=== PATIENT | female | born 1985 | race Caucasian/White ===

== ENCOUNTER 2017-10-12 22:33 | Emergency (ER) | payer OTHER ==
[2017-10-12] MEDS ORDERED: Levalbuterol HFA INHALER* 1 PUFF MDI INH ONE (23:18)
[2017-10-12] MEDS ORDERED: Benzonatate CAP* 100 MG PO ONE (23:19)
[2017-10-12] MEDS ORDERED: Acetaminophen TAB* 325 MG PO ONE (23:19)
[2017-10-12] MEDS ORDERED: Ciprofloxacin TAB* 500 MG PO ONE (23:39)
--- NOTE | 2017-10-13 00:11 | ED ---
Throat Pain/Nasal Congestion - HPI Summary HPI Summary: Patient presents to the ED with CC of left ear drum perforation. She states the ear has been hurting for about 4 days (likely having an inner ear infection ) until this morning when she heart a "pop" and she felt as though her ear burst. She notes to bloody discharge from the ear. She was seen by a PCP at [facility] and dx with a perforated ear drum. Endorses decreased hearing. Pain is 8/10 and constant, but she declines pain management. She also has had a cold recently with cough with productive sputum. Denies [place], sinus pressure or chest pain. Endorses fevers, sweats. None currently. Denies chills. Denies recent abx use or PNA. Notes to some SOB which is worse with her cold symptoms and takes xopenex for relief. Denies taking any other medications. Endorses sick contacts. - History of Current Complaint Chief Complaint: EDEarPain Time Seen by Provider: 10/12/17 22:48 Hx Obtained From: Patient Onset/Duration: Sudden Onset Severity: Moderate - Epiglottits Risk Factors Epiglottis Risk Factors: Negative - Allergies/Home Medications Allergies/Adverse Reactions: Allergies Allergy/AdvReac Type Severity Reaction Status Date / Time Latex Allergy Mild Rash Verified 10/11/12 09:58 PMH/Surg Hx/FS Hx/Imm Hx Previously Healthy: Yes Respiratory History: Reports: Hx Asthma GI History: Reports: Hx Gastroesophageal Reflux Disease Psychiatric History: Reports: Hx Depression - Immunization History Hx Pertussis Vaccination: No Immunizations Up to Date: Yes Infectious Disease History: No Infectious Disease History: Denies: Traveled Outside the [place] in Last 30 Days - Family History Known Family History: Positive: Hypertension, Other - diverticulitis, crohns Negative: Cardiac Disease, Diabetes - Social History Occupation: Employed Full-time Lives: With Family Alcohol Use: None Hx Substance Use: No Substance Use Type: Reports: None Hx Tobacco Use: Yes Smoking Status (MU): Never Smoked Tobacco Review of Systems Positive: Fever, Chills, Fatigue Eyes: Negative Positive: Ear Ache. Negative: Epistaxis, Sore Throat, Nasal Discharge Negative: Palpitations, Chest Pain Positive: Shortness Of Breath, Cough Negative: Vomiting, Diarrhea Positive: no symptoms reported, see HPI. Negative: burning, dysuria Negative: Arthralgia, Myalgia Negative: Rash Negative: Headache All Other Systems Reviewed And Are Negative: Yes Physical Exam Triage Information Reviewed: Yes Vital Signs On Initial Exam: Initial Vitals Temp Pulse Resp BP Pulse Ox 98.4 F 107 16 134/111 98 10/12/17 22:36 10/12/17 22:36 10/12/17 22:36 10/12/17 22:36 10/12/17 22:36 Vital Signs Reviewed: Yes Appearance: Positive: Well-Appearing, Well-Nourished Skin: Positive: Warm, Skin Color Reflects Adequate Perfusion Head/Face: Positive: Normal Head/Face Inspection Eyes: Positive: EOMI, SONIA, Conjunctiva Clear ENT: Positive: Other - TM with small perforation - no evidence of other trauma. No bleeding or drainage in the ear canal. Neck: Positive: Supple, No Lymphadenopathy Respiratory/Lung Sounds: Positive: Clear to Auscultation, Breath Sounds Present Cardiovascular: Positive: RRR, Pulses are Symmetrical in both Upper and Lower Extremities Musculoskeletal: Positive: Strength/ROM Intact Neurological: Positive: Speech Normal Psychiatric: Positive: Normal - [place] Coma Scale Coma Scale Total: 15 Diagnostics - Vital Signs Vital Signs Temp Pulse Resp BP Pulse Ox 10/12/17 22:36 98.4 F 107 16 134/111 98 - Laboratory Lab Statement: Any lab studies that have been ordered have been reviewed, and results considered in the medical decision making process. EENT Course/Dx - Course Course Of Treatment: Patient is evaluated for ear perforation. No serous fluid or other drainage from the inner ear. No mastoid tenderness. She was dx with perf today by a PCP. She was unable to pick her medications up and now the pharmacy is closed. She endorses bloody discharge earlier today. Notes to a cough with some SOB. TM appears to have a small perforation with erythema in the canal without evidence of infection. D/t likely otitis media infection preceding the perf, she is given Cipro - patient is refusing amoxicillin d/t side effects. She is given follow up with Dr. Ruiz although I have stated these likely will improve without other treatments/surgeries or approaches, but she should still call tomorrow for appt. She agrees to this. Declines pain medication. She is given tessalon for cough and refill on her xopenex. She is encouraged to return if the ear pain worsens or her cough worsens despite the medication or she develops any fevers, sweats or chills. While her BP was elevated on arrival, she is rechecked prior to leaving and returned to WNL at 136/86. She is to follow up on this as well, but likely elevated d/t pain. - Differential Diagnoses Differential Diagnoses: Mastoiditis, Otitis Externa, Otitis Media - Diagnoses Provider Diagnoses: Perforated eardrum Discharge - Discharge Plan Condition: Stable Disposition: HOME Prescriptions: Benzonatate CAP* [Tessalon CAP*] 100 mg PO TID #21 cap Ciprofloxacin TAB* [Cipro 500 MG TAB*] 500 mg PO BID #15 tab Patient Education Materials: Otitis Media (ED) Referrals: Favio Ruiz MD [Medical Doctor] - Additional Instructions: Please follow up with Dr. Ruiz Cipro - take twice daily for 7 days- first dose is given in the ED Tessalon perles for cough - up to 3 times daily Xopenex inhaler given to you in the ED Humidifier in the home will help Tylenol for any pain If symptoms persist, I recommend follow up with Dr. Ruiz
[2017-10-13 01:14] VITALS: BP 107/73
== END 2017-10-12 23:58 | disposition home or self-care (01) ==
LOC: ED 22:33
DX: H72.90 Unspecified perforation of tympanic membrane, unspecified ear (principal); H92.09 Otalgia, unspecified ear
CPT/HCPCS: 99282; A9270-GY

== ENCOUNTER 2018-08-07 19:52 | Emergency (ER) | payer MEDICAID, OTHER ==
[2018-08-07] MEDS ORDERED: Amoxicillin/Clavulanate TAB* 875 MG PO ONE (20:08)
--- NOTE | 2018-08-07 20:13 | ED ---
Throat Pain/Nasal Congestion - HPI Summary HPI Summary: Patient with history of recurrent ear infections complains of right ear pain 4 days. Denies fever, cough, sore throat, some headache, neck pain, purulent drainage, CP, SOB, N/V/D, abdomen pain, change in urine, change in BM. - History of Current Complaint Chief Complaint: EDEarPain Time Seen by Provider: 08/07/18 19:59 Hx Obtained From: Patient Onset/Duration: Gradual Onset Severity: Severe Associated Signs And Symptoms: Positive: Negative Cough: None - Allergies/Home Medications Allergies/Adverse Reactions: Allergies Allergy/AdvReac Type Severity Reaction Status Date / Time latex AdvReac Mild Rash Verified 08/07/18 19:58 PMH/Surg Hx/FS Hx/Imm Hx Endocrine/Hematology History: Denies: Hx Anticoagulant Therapy Respiratory History: Reports: Hx Asthma GI History: Reports: Hx Gastroesophageal Reflux Disease Psychiatric History: Reports: Hx Depression Infectious Disease History: No Infectious Disease History: Denies: Traveled Outside the [place] in Last 30 Days - Family History Known Family History: Positive: Hypertension, Other - diverticulitis, crohns Negative: Cardiac Disease, Diabetes - Social History Alcohol Use: None Substance Use Type: Reports: None Hx Tobacco Use: Yes Smoking Status (MU): Never Smoked Tobacco Review of Systems Constitutional: Negative Eyes: Negative Positive: Ear Ache Cardiovascular: Negative Respiratory: Negative Gastrointestinal: Negative Genitourinary: Negative Musculoskeletal: Negative Skin: Negative Neurological: Negative Psychological: Normal All Other Systems Reviewed And Are Negative: Yes Physical Exam Triage Information Reviewed: Yes Vital Signs On Initial Exam: Initial Vitals Temp Pulse Resp BP Pulse Ox 98.2 F 88 16 124/85 100 08/07/18 19:55 08/07/18 19:55 08/07/18 19:55 08/07/18 19:55 08/07/18 19:55 Vital Signs Reviewed: Yes Appearance: Positive: Well-Appearing Skin: Positive: Warm Head/Face: Positive: Normal Head/Face Inspection Eyes: Positive: Normal ENT: Positive: TM red - rt. Negative: Tonsillar swelling, Tonsillar exudate, Trismus, Muffled voice, Hoarse voice Neck: Positive: Supple Respiratory/Lung Sounds: Positive: Clear to Auscultation Cardiovascular: Positive: Normal Abdomen Description: Positive: Nontender Musculoskeletal: Positive: Normal Neurological: Positive: Normal Psychiatric: Positive: Normal AVPU Assessment: Alert - [place] Coma Scale Best Eye Response: 4 - Spontaneous Best Motor Response: 6 - Obeys Commands Best Verbal Response: 5 - Oriented Coma Scale Total: 15 Diagnostics - Vital Signs Vital Signs Temp Pulse Resp BP Pulse Ox 08/07/18 19:55 98.2 F 88 16 124/85 100 - Laboratory Lab Statement: Any lab studies that have been ordered have been reviewed, and results considered in the medical decision making process. EENT Course/Dx - Course Course Of Treatment: Patient with history of recurrent ear infections complains of right ear pain 4 days. Denies fever, cough, sore throat, some headache, neck pain, purulent drainage, CP, SOB, N/V/D, abdomen pain, change in urine, change in BM. Vital signs within normal limits. Rx for Augmentin. Rx for Ciprodex if necessary. - Diagnoses Provider Diagnoses: Ear pain, right Discharge - Sign-Out/Discharge Documenting (check all that apply): Patient Departure - Discharge Plan Condition: Stable Disposition: HOME Prescriptions: Amoxicillin/Clavulanate TAB* [Augmentin TAB 875*] 875 mg PO BID #20 tab Ciproflox/Dexameth OTIC.SUSP* [Ciprodex OTIC.SUSP*] 4 drop .SEE ORDER BID 7 Days #1 btl Patient Education Materials: Earache (ED) Referrals: No Primary Care Phys,NOPCP [Primary Care Provider] - [facility] [Outside] Additional Instructions: Take antibiotics as directed. Follow-up with primary care. Return to ED for any new or worsening symptoms - Billing Disposition and Condition Condition: STABLE Disposition: Home
[2018-08-07 20:30] VITALS: BP 122/72
== END 2018-08-07 20:28 | disposition home or self-care (01) ==
LOC: ED 19:52
DX: H92.01 Otalgia, right ear (principal)
CPT/HCPCS: 99282; A9270-GY

== ENCOUNTER 2018-10-12 19:37 | Observation (INO) | payer SELFPAY ==
[2018-10-12] MEDS ORDERED: NS 0.9% 1000 ML* 1,000 ML IV ONE (19:59)
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
[2018-10-12 20:16] LABS: ABS Basophils 0.1 10^3/ul (0-0.2); ABS Eosinophils 0.8 10^3/ul (0-0.6); ABS Lymphocytes 2.5 10^3/ul (1.0-4.8); ABS Monocytes 0.5 10^3/ul (0-0.8); ABS Neutrophils 4.3 10^3/ul (1.5-7.7); ABS Nucleated RBC 0 10^3/ul; Eosinophil % 9.4 %; Hematocrit 43 % (35-47); Hemoglobin 14.9 g/dl (12.0-16.0); Lymphocyte % 30.7 %; Mean Corpuscular HGB Conc 35 g/dl (31-36); Mean Corpuscular Hemoglobin 30 pg (27-31); Mean Corpuscular Volume 86 fL (80-97); Mean Platelet Volume 7.8 fL (7.4-10.4); Nucleated Red Blood Cells % 0; Platelet Count 275 10^3/ul (150-450); Red Blood Count 4.97 10^6/ul (4.00-5.40); Red Cell Distribution Width 13 % (10.5-15); White Blood Count 8.1 10^3/ul (3.5-10.8)
[2018-10-12 20:24] LABS: Activated Partial Thrombo Time 32.3 seconds (26.0-36.3); INR 0.82 (0.77-1.02)
[2018-10-12 20:33] LABS: ALT 20 U/L (7-52); AST 14 U/L (13-39); Albumin 4.4 g/dL (3.2-5.2); Albumin/Globulin Ratio 1.6 (1-3); Alkaline Phosphatase 60 U/L (34-104); Anion Gap 8 mmol/L (2-11); BUN/Creatinine Ratio 12.3 (8-20); Blood Urea Nitrogen 10 mg/dL (6-24); CO2 Carbon Dioxide 30 mmol/L (22-32); Calcium 9.7 mg/dL (8.6-10.3); Chloride 102 mmol/L (101-111); EGFR Non-African American 82.5 (>60); Globulin 2.8 g/dL (2-4); Glucose 119 mg/dL (70-100); Potassium 3.5 mmol/L (3.5-5.0); Sodium 140 mmol/L (135-145); Total Protein 7.2 g/dL (6.4-8.9)
[2018-10-12] MEDS ORDERED: Aspirin EC TAB* 325 MG PO ONE (20:36)
[2018-10-12 20:39] LABS: HCG Pregnancy < 0.60 mIU/mL
[2018-10-12] MEDS ORDERED: Iohexol 350* (CONTRAST) 500 ML MDV IV ONE (20:40)
[2018-10-12 22:26] LABS: Urine Appearance Clear; Urine Bacteria Absent (Absent); Urine Bilirubin Negative (Negative); Urine Blood 3+ (Negative); Urine Color Yellow; Urine Glucose Negative (Negative); Urine Ketones Negative (Negative); Urine Nitrite Negative (Negative); Urine Protein Negative (Negative); Urine Red Blood Cell 2+(6-10/hpf) (Absent); Urine Specific Gravity 1.053 (1.010-1.030); Urine Urobilinogen Negative (Negative); Urine White Blood Cell Trace(0-5/hpf) (Absent)
[2018-10-12 22:40] LABS: Barbiturates Urine Screen None Detected (None Detect); Benzodiazepine Urine Screen None Detected (None Detect); Urine Cannabinoids Screen None Detected (None Detect)
[2018-10-12] MEDS: Potassium Chloride LIQUID* 20 MEQ PACKET PO SCH (22:42)
[2018-10-12] MEDS ORDERED: Acetaminophen TAB* 325 MG PO PRN (22:51)
[2018-10-12] MEDS ORDERED: NS 0.9% 1000 ML* 1,000 ML IV SCH (23:00)
--- NOTE | 2018-10-13 00:37 | HP ---
HISTORY AND PHYSICAL: DATE OF ADMISSION: 10/12/18 ADMITTING PROVIDER: Sukhjinder Albert MD OUTPATIENT BENEFIT DIRECTOR: Tamika Valderrama CNM. CHIEF COMPLAINT: Transient aphasia. HISTORY OF PRESENT ILLNESS: Dee Jade is a 33-year-old female with past medical history of intermittent tachyarrhythmia for which she was last worked up with Holter monitor x1 month at age 17, 18 and 3 months, and during college, but unable to state a formal diagnosis, otherwise on no medications, but intermittent migraine headaches. She was eating dinner with her family on the day of admission when her daughter was acting out. She attempted to chastise the daughter and correct her behavior and knew what she wanted to say, but could not say it. She thinks she was able to say the word "ask," but she cannot relate exactly what else she said. She may have pointed to her older daughter, (aged 11, Porsha), who then was able to infer the meaning and tell the younger daughter to be more polite. This intermittent aphasia continued and the patient was brought to the [facility] emergency room and a faby march was called. She has had a CT head noncontrast, which showed no acute findings and a CTA which also showed no significant stenosis or occlusion of the extracranial internal carotid arteries bilaterally and a dominant left vertebral artery was visualized. By the time she had returned from the CT of the head around 7:45 p.m., the intermittent aphasia seems to have resolved. She also complained of a sensation of a salty taste in her mouth. During this episode, she is unable to say whether or note she was currently eating at that time (bread/egg for dinner), that has resolved. She has initially had a pressure headache in the top part of her head in the emergency room, now progressed to mild migraine headache. She does not take any medications for that. She also states for about 3 weeks, she has had a spot in her right posterior thigh which has been warm and itchy and occasionally painful, and she has been using a heat patch for that. Also today, her right anterior knee was hurting her. She has had diarrhea since Tuesday that resolved by this a.m., and now, other members of the household including and mother have developed diarrhea today. As far as her tachyarrhythmia history, she states that she gets heart rates up to the 270s back when she was playing soccer in college and also if she does any interval type training with heart exertion. Even recently, she had sensations of palpitations approximately twice a month and states if she has them during a day, it would usually last all that day. She had a brief sensation here in the emergency room. Her last echocardiogram was more than 10 years ago in [facility] back in her college days, she was recommended to follow up with another echocardiogram in 6 months, but got and never did so. She thinks she may have had a murmur at one point since . PAST MEDICAL HISTORY: Tachyarrhythmia (unclear diagnosis) and occasional migraine headaches. PAST SURGICAL HISTORY: None. MEDICATIONS: None. ALLERGIES: She has adverse reactions to ALEVE (rectal bleeding) and MOTRIN ( stomach pain). She has LATEX allergy (rash). FAMILY HISTORY: Her mother has hypertension and hypothyroidism, alive, age 59. Father is healthy, age 60. Two sisters, ages 34 and 37, are healthy. Paternal grandmother and maternal grandmother both had CVAs. 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 She is a former smoker between ages 17 and 33, varying between 2 cigarettes , and by the time she quit in June, it was max 1-1/2 packs per day. She currently vapes. She does not drink alcohol or do other drugs. REVIEW OF SYSTEMS: A complete 14-point review of systems is negative except as per HPI. Denies any slurred speech, rashes, travel, long car rides, plane rides , leg cramps other than as per HPI. PHYSICAL EXAMINATION GENERAL APPEARANCE: No acute distress, though preferring the lights off. VITAL SIGNS: Temperature 99.0, heart rate 88, respiratory rate 16, oxygen sat 99 % on room air, blood pressure 147/97. HEENT: Normocephalic, atraumatic. Pupils equally round and reactive to light. Extraocular motions intact. NECK: Supple. No cervical lymphadenopathy. LUNGS: Clear to auscultation bilaterally with no wheezing, rales, or rhonchi. CARDIOVASCULAR: Regular rate and rhythm. No murmurs, rubs, or gallops appreciated. ABDOMEN: Soft, nontender, nondistended. EXTREMITIES: Warm and well perfused. No peripheral edema. No joint effusions in bilateral knees. NEUROLOGIC: Cranial nerves II through XII intact. Hand Zipper Trimmer strength, biceps, triceps, deltoid 5/5. Hip flexion, plantar flexion 5/5 on the left, hip flexion 5/5 on the right, but plantar and dorsiflexion pain limiting to at least 4+/5 on the right. DIAGNOSTIC STUDIES/LAB DATA: White count 8.1, hemoglobin 14.9, hematocrit 43, platelets 274. INR 0.82. Sodium 140, potassium 3.5, chloride 102, BUN 10, creatinine 0.81, glucose 119, calcium 9.7, magnesium pending. Total bili is 0.3 , AST 14, ALT 20, alk phos 60. Troponin 0.00. Albumin 4.4. Beta HCG less than 0.60. Imaging: CT of the brain demonstrates no acute intracranial abnormality CT angiogram of the head demonstrates: 1. No significant stenosis or occlusion of the extracranial internal carotid arteries bilaterally. 2. A dominant left vertebral artery is visualized. 3. Mildly enlarged level 1 to level 3 cervical lymph nodes are identified bilaterally, nonspecific as to etiology. 4. Subcentimeter intraparotid lymph nodes or nodules are visualized bilaterally. EKG demonstrated normal sinus rhythm, normal axis, heart rate 76, no ST elevations or depressions, a flat T-wave in V1, QTC 431, normal intervals, some poor R-wave progression. ASSESSMENT AND PLAN: Dee Jade is a 33-year-old female with history of unclear tachyarrhythmia with rates, she states, up in the 270s and never followed up with recommendation to repeat an echocardiogram that had an abnormality back in her college days, presenting with intermittent aphasia that has resolved. CT head and CT head angiogram, no acute intracranial processes. She has been admitted for transient ischemic attack workup and will get an echocardiogram with bubble study and rule out thrombus. Keep her on telemetry, replete her electrolytes, magnesium above 2 (pending) and potassium above 4, currently 3.5. We will order an MRI noncontrast of the brain to further rule out a small cerebrovascular accident. She is without neurological deficits currently. She can eat a heart-healthy diet. I am starting aspirin 81 daily. She is being admitted to observation status. She is a full code. Her medical surrogate is her mother, Adrianne Loza. She should likely establish care with an outpatient pack out operator, but we will see what the echocardiogram and telemetry findings show. [id number]/[facility] #: [id number] MARIANA
[2018-10-13] MEDS ORDERED: Aspirin 81 mg CHEW TAB* 81 MG TAB.CHEW PO SCH (09:00)
[2018-10-13] MEDS: Potassium Chloride LIQUID* 20 MEQ PACKET PO SCH (09:14)
[2018-10-13] MEDS ORDERED: Gadoteridol* (CONTRAST) 279.3 MG/ML 10 ML IV ONE (11:47)
[2018-10-13 12:35] VITALS: BP 116/66
--- NOTE | 2018-10-13 13:30 | CONSULT ---
Consult Consult: Gustatory hallucination with intermittent word finding difficulty - suspect seizures. Given that this is the 2-3 episode without 3 months, and the abnormal EEG, we agreed to treat with levetiracetam. Please start 250 mg PO twice daily, and increase to 500 mg twice daily after 3 days. Follow-up with neurology in 3-4 weeks. We will arrange an appointment. MRI brain reviewed. No acute abnormalities or lesion ( mass, mesial temporal sclerosis, cortical dysplasia). She can be discharged from the neurology standpoint. Complete consult note was dictated.
--- NOTE | 2018-10-13 14:37 | ECHO ---
Patient: RAKEL RAYA [facility] Rec#: [id number] : 1985 Date: 10/13/2018 Age: 33y Height: 160 cm / 63.0 in Weight: 74.8 kg / 164.9 lbs Sex: F BSA: 1.78 Room#: 434 Admit Date#: 10/12/2018 Type: Inpatient Referring: Sukhjinder Albert Reading: Will Gonzalez DO Survey Engineer: [facility] Indication: TIA BP: 97/50 HR: 78 Rhythm: NSR Findings History: Former cigarette smoker, current vape smoker, intermittent tachyarrhythmia. Technical Comments: The study quality is good. Completed at 1420. Left Ventricle: The left ventricular chamber size is normal. There is no left ventricular hypertrophy. Global left ventricular wall motion and contractility are within normal limits. There is normal left ventricular systolic function. The estimated ejection fraction is 55-60%. Normal left ventricular diastolic filling is observed. Left Atrium: The left atrial chamber size is normal. Right Ventricle: The right ventricular chamber size and systolic function are within normal limits. Right Atrium: The right atrium is mildly dilated. Interatrial septum appears intact without evidence of shunting. The bubble study is negative. A patent foramen ovale is not demonstrated with color Doppler and agitated contrast. Aortic Valve: The aortic valve is trileaflet. There is no evidence of aortic valve thickening. There is no evidence of aortic regurgitation. There is no evidence of aortic stenosis. Mitral Valve: The mitral valve leaflets do not appear thickened. There is a trace of mitral regurgitation. There is no evidence of mitral stenosis. Tricuspid Valve: The tricuspid valve leaflets are normal. There is a physiologic tricuspid regurgitation. Unable to estimate the right ventricular systolic pressure. There is no tricuspid stenosis. Pulmonic Valve: The pulmonic valve appears normal. There is a trace pulmonic regurgitation. There is no pulmonic stenosis. Pericardium: There is no significant pericardial effusion. Aorta: There is no dilatation of the ascending aorta. There is no dilatation of the aortic arch. The aortic root is normal in size. Pulmonary Artery: The main pulmonary artery is not well visualized. Venous: The inferior vena cava appears normal in size. There is a greater than 50% respiratory change in the inferior vena cava dimension. Contrast: Intravenous agitated saline contrast was used to assess intracardiac shunting. Images 48 and 49. Conclusions The left ventricular chamber size is normal. There is no left ventricular hypertrophy. Global left ventricular wall motion and contractility are within normal limits. There is normal left ventricular systolic function. The estimated ejection fraction is 55-60%. The left atrial chamber size is normal. The right ventricular chamber size and systolic function are within normal limits. No significant valvular abnormalities noted The bubble study is negative. None prior for comparison at time of interpretation Measurements Name Value Normal Range RVIDd (AP) 2D 3.3 cm (0.9 - 2.6) RVDdMajor (2D) 4.3 cm (2.2 - 4.4) RAd ISD 4CH 5.1 cm (3.4 - 4.9) RA (A4C)W 4.7 cm (2.9 - 4.6) IVSd (2D) 0.6 cm (0.6 - 1) LVPWd (2D) 0.8 cm (0.6 - 1) LVIDd (2D) 5 cm (3.6 - 5.4) LVIDs (2D) 3.5 cm - LV FS (2D) 30 % (25 - 45) Aortic Annulus 2.1 cm (1.4 - 2.6) Ao root diameter (2D) 2.7 cm (2.1 - 3.5) Ascending Ao 2.7 cm (2.1 - 3.4) Aortic arch 2.1 cm (1.8 - 3.4) LA dimension (AP) 2D 3.9 cm (2.3 - 3.8) LAd ISD 4CH 4.6 cm (2.9 - 5.3) LA ISD 4CH W 4.1 cm (2.5 - 4.5) Name Value Normal Range LA ESV BP (A/L) index 27 ml/m2 - Name Value Normal Range MV E-wave Vmax 1.1 m/sec - MV deceleration time 106 msec - MV A-wave Vmax 0.5 m/sec - MV E:A ratio 2.1 ratio - LV septal e' Vmax 0.1 m/sec - LV lateral e' Vmax 0.14 m/sec - LV E:e' septal ratio 11 ratio - LV E:e' lateral ratio 7.9 ratio - Name Value Normal Range AV Vmax 1.4 m/sec - AV VTI 28 cm - AV peak gradient 8 mmHg - AV mean gradient 4 mmHg - LVOT Vmax 1.1 m/sec - LVOT VTI 22.7 cm - LVOT peak gradient 5 mmHg - LVOT mean gradient 2 mmHg - GEETHA Vmax 1.1 m/sec - Name Value Normal Range IVC diameter 2 cm - Name Value Normal Range PV Vmax 0.9 m/sec - PV peak gradient 3 mmHg -
--- NOTE | 2018-10-13 15:00 | CONS ---
NEUROLOGY CONSULTATION NOTE: DATE OF CONSULT: 10/13/18 CONSULTING PROVIDER: Dr. Dexter. REASON FOR CONSULT: Transient episode of word finding difficulty. CHIEF COMPLAINT: Word finding difficulty. 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 while having dinner of abnormal taste in her mouth as if she was tasting salt, then sudden onset of word finding difficulty. She was having trouble saying words to her children. Her children were looking at her and repeating her name and asking her if she was okay. She was awake, conscious, and can hear her children speaking to her. This lasted for approximately 15 to 20 minutes and then she required an extra 1 hour before she was able to verbalize without any complication. She never had any similar symptom before except for one episode in September where she was talking to her when suddenly she was not able to find the right words. That incident took only 2 minutes before she was back to her normal self. She did have a 6/10 pressure holocephalic headache that lasted approximately 4 hours. She does have history of occasional headaches approximately 1-3 times a month. The patient stated that she had an episode in August of 2018, where she was driving with her . She took the wrong turn and her was ensure why. She then got lost driving. After a few minutes, they had to turn around and take a different road, but she was not sure how she got to where she was initially when she usually typically takes the same road over and over again. The patient denied any history of epilepsy. She denied any family history of epilepsy. She has no history of head trauma, meningitis, encephalitis, brain or spinal cord surgeries. She has no history of febrile seizures. The patient was born full term, normal vaginal delivery without any complication. PAST MEDICAL HISTORY: Former tobacco user. She smoked for approximately 15 years. She averaged 1-1/2 packs a day. She quit in July 2018. HOME MEDICATIONS: None. ALLERGIES: LATEX, IBUPROFEN, and NAPROXEN. FAMILY HISTORY: Father is healthy. Mother has history of hypothyroidism and hypertension. SOCIAL HISTORY: The patient is . She has 4 children, 3 with her current and 1 with her former . She is going through some tough times at home and she has encountered sleep deprivation. She denies alcohol use. REVIEW OF SYSTEMS: A 14-point review of systems was obtained and otherwise negative. PHYSICAL EXAM: Vitals: Temperature of 97.4, heart rate of 72, respiratory rate of 16, oxygen saturation of 97%, blood pressure of 116/66. General: Well- nourished, well-developed female, in no acute distress, alert, cooperative. Head: Normocephalic without obvious abnormality. Eyes: Conjunctivae/corneas are clear. Neck is supple and symmetrical. No carotid bruit. Lungs are clear to auscultation bilaterally, nonlabored breathing. Cardiovascular: Regular rate and rhythm, normal S1, S2. Radial pulses are palpable. Extremities: Normal range of motion with no cyanosis. Skin: No skin lesions or lacerations. Psych: Affect is broad and normal mood, easy to establish rapport. Neurological Examination: Awake, alert, and oriented to person, place , time, and general circumstances. Her speech and language including time, expression, naming, repetition, and comprehension were assessed and found to be normal. Cranial Nerves: Normal confrontation testing. Pupils are mid range and reactive to light. Normal consensual response. Extraocular muscles are intact. No ptosis. No conjugate or asymmetric nystagmus. Sensation is intact on the forehead, cheeks, jaw region bilaterally. No facial droop. No facial asymmetry. She is able to hear throughout the history process. She has normal strength against shoulder resistance. Tongue is symmetrical and midline with no atrophy or fasciculation. Motor: No abnormal movements or pronator drift. Normal bulk and tone throughout. 5/5 strength throughout. Reflexes: Right/ left brachioradialis 2/1, biceps 2/1, triceps 2/2, patella 2/2, ankle 1/1. Plantarflexor/flexor, sensation is intact to light touch throughout. Vibration is 22 seconds on the right and 20 seconds on the left great toe. Coordination: Normal [id number] bilaterally. Gait and Station: Narrow based. Normal stance. No ataxia. DIAGNOSTIC STUDIES/LAB DATA: Labs, imaging, and other diagnostic testing. WBC of 8.1, hemoglobin 14.9, hematocrit of 43, platelet count of 275. INR is 0.82. Sodium of 140, potassium 3.5, chloride 102, creatinine of 0.81. Urinalysis, no pyuria. Drug screen is negative. Urine toxicology screen is negative. EEG was obtained, there was evidence of bisynchronous bitemporal discharges with intermittent diffuse areas of sharply contoured slowing. MRI brain with and without contrast, seizure protocol was obtained on 10/13/18. There was no definite epileptogenic focus. No acute intracranial abnormality. I personally reviewed the study. The mesial temporal lobes may be slightly asymmetric with slight atrophy in the right compared to the left. No enhancement was appreciated. CTA head and neck was obtained on 10/12/18 that showed no areas of large vessel occlusion. CT head without contrast completed on 10/12/18. I personally reviewed the study. There is no evidence of acute intracranial abnormality. ASSESSMENT AND RECOMMENDATION: Mrs. Dee Jade is a 33-year-old female who has a recent episode of word finding difficulty associated with abnormal taste/gustatory hallucinations. On neurological examination, the patient has no focal neurological deficit. She did have an abnormal EEG with no focal epileptic focus on MRI with and without contrast seizure protocol. Given that this is the third episode that she has had within a 3-month period, the patient most likely has diagnosis of seizures. The cause of the seizures are unclear. She has no risk factors for epilepsy. She has been complaining of increase in sleep deprivation and stress lately. Furthermore, the patient has been exposed to multiple antibiotic therapy over the last year for an infected tooth, which includes amoxicillin and doxycycline. We have agreed to start her on levetiracetam with a load of 500 mg p.o. x1 and continue 250 mg b.i.d. Please increase levetiracetam to 500 mg b.i.d. after 3 days. We will consider other treatment modalities such as Topamax or lamotrigine as an outpatient. She has no evidence of any headaches or nuchal rigidity or memory loss to suspect a paraneoplastic syndrome; however, if these symptoms develop, she may need a lumbar puncture as an outpatient. We discussed seizure precaution and good seizure hygiene. She did not have any loss of awareness or loss of consciousness during these episodes, hence driving restriction was not mandated. She has no stroke or no risk factors for transient ischemic attack and therefore, please discontinue aspirin and atorvastatin. Furthermore, her ABCD2 score is extremely low; thus, it's unlikely she is having re urrent TIA. The patient was instructed to come back to the emergency room if she develops any symptoms of seizures, focal neurological deficit, or increased headaches. She does not want any medications for her headache as these are mild and infrequent. The side effects of levetiracetam includes irritability and agitation, which she may experience and then she should contact our office immediately to be switched to a different antiseizure medication. TIME SPENT: I spent a total of 70 minutes of which greater than 50% was spent directly reviewing the medical chart, obtaining history, examining the patient, education and counseling regarding the new diagnosis, and discussing the treatment plan and prognosis. The patient can be discharged home from the Neurology standpoint today. [id number]/[facility] #: [id number]
[2018-10-13] MEDS ORDERED: levETIRAcetam TAB* 500 MG PO ONE (15:20)
--- NOTE | 2018-10-13 17:11 | EEG ---
ELECTROENCEPHALOGRAPHY: DATE OF STUDY: 10/13/18 DATE READ: 10/13/18 ORDERED BY: Dr. Sofia Dexter. MEDICATIONS: 1. Aspirin. 2. Klor-Con. 3. Acetaminophen. CLINICAL PROBLEM: Mrs. Jade is a 33-year-old female with history of intermittent episodes of word -finding difficulty. This EEG was ordered to evaluate for epileptiform abnormalities or electrograph ic seizures. CLINICAL STATE: Awake and drowsy. REPORT: The most prominent features of this recording were intermittent, paroxysms of diffuse polymo rphic sharply contoured delta and theta activity seen predominantly in the frontal region bilaterally . In addition also, there are occasional, intermittent, bitemporal, bisynchronous sharp with occasio nal medial amplitude spike and slow wave discharges maximal at A1, A2 with a spread to T4 and T3. Th e sharp waves were also occasionally seen in the left and right frontal regions at FP1, FP2, F3, F8. There were no electrographic seizures. Otherwise, the waking background showed appropriate organiza tion with clearly defined anterior- posterior voltage and frequency gradients. There was a well-defi katlyn posterior dominant rhythm of 9 Hz, which was symmetrical and showed normal reactivity. Anteriorly , there was an expected pattern of lower voltage, irregular, mixed faster frequencies. Hyperventilat ion and photic stimulation were not performed. Single electrode EKG showed a normal sinus rhythm wit h a rate of 60 beats per minute. Throughout the recording, there were no electrographic seizures. Th ere was attenuation of the posterior dominant rhythm during drowsiness. CLINICAL IMPRESSION: This is an abnormal waking and drowsy EEG due to the presence of diffuse polymo rphic sharply contoured slowing predominantly in the frontal region, bitemporal and bifrontal bisynch ronous sharp with occasional spike and slow wave discharges. These findings are suggestive of multifocal areas of epileptogenic potential predominantly emanating from the bitemporal regions. This heightens the risk for seizures and for developing epilepsy. Following the EEG results, we have decided to start the patient on antiseizure medications. The korin ent was started on levetiracetam 250 mg twice daily. [id number]/[facility] #: [id number]
[2018-10-13] MEDS ORDERED: levETIRAcetam TAB* 500 MG PO SCH ×2 (21:00)
--- NOTE | 2018-10-13 21:03 | DS ---
CC: Dr. Leonard; Dr. Albert and Dr. Quin Duran, [facility] * DISCHARGE SUMMARY: DATE OF ADMISSION: 10/12/18 DATE OF DISCHARGE: 10/13/18 PRIMARY CARE PROVIDER: The patient does not have a primary care provider. NEUROLOGY: Dr. Leonard. DISCHARGE DIAGNOSIS: Transient aphasia, likely due to seizure disorder. SECONDARY DIAGNOSIS: History of further undescribed tachyarrhythmia and migraine headaches. MEDICATIONS AT DISCHARGE: Include Keppra 250 mg b.i.d. for a total of 3 days and then increase to 500 mg b.i.d. FOLLOWUP APPOINTMENTS: The patient is referred to [facility], which will call the patient with a scheduled appointment. The patient is also asked to call Dr. Leonard's office to schedule an appointment in 3 to 4 weeks. LABORATORY DATA AND STUDIES PERFORMED DURING THE HOSPITAL STAY: Included: On 10/12/18, white blood cell count of 8.1, hemoglobin of 14.9, hematocrit of 43, and platelets of 275. Sodium is 140, potassium is 3.5, chloride 102, carbon dioxide 30, BUN 10, creatinine 0.81. Urine drug screen was unremarkable. Brain MRI obtained with contrast on 10/13/18, impression: "No definite epileptogenic focus. No acute intracranial abnormality." Venous Dopplers of the right leg show no DVT. X-ray of the right leg shows normal knee radiograph. Transthoracic echocardiogram obtained on 10/13/18 showed EF of 55% to 60% with bubble study negative and no significant valvular abnormalities. CT angiogram of the head and neck showed "no hemodynamically significant stenosis or occlusion of the CTA of the head. A dominant left vertebral artery is visualized. No significant stenosis or occlusion of the extracranial internal carotid arteries bilaterally. Mildly enlarged level I through level III cervical lymph nodes are identified bilaterally. No specific etiology. Subcentimeter intraparotid lymph nodes or nodules are visualized bilaterally." Portable chest x-ray was also unremarkable. The patient's EEG was pending at the time of dictation, but the preliminary report obtained from Dr. Leonard showed occasional epileptiform discharges noted temporally. Please refer to the formal read of the EEG for further details. CONSULTATIONS: Included Dr. Leonard from neurology. HOSPITALIZATION COURSE: Dee Jade is a 33-year-old female who presented to the hospital with an episode of problems with word finding. For further details of the patient's presentation, please see history and physical. So, the patient was admitted to the hospital and at that point, neurologically intact. She continues to be on telemetry monitoring floor with no evidence of arrhythmias. She had an EEG obtained, which showed abnormal discharges. Subsequently, she was seen by Dr. Leonard, neurology consultation, who recommended an MRI of the brain. That was obtained and, as above mentioned, was also unremarkable. The patient also underwent a CT angiogram of the head and neck with no evidence of abnormalities in the vasculature. Transthoracic echocardiogram was negative for PFO and normal EF with no valvular abnormalities. The patient was recommended by Dr. Leonard to be started on Keppra and to follow up with Neurology in approximately 3 to 4 weeks. The patient is also not to drive for the next few days as recommended by Neurology. PHYSICAL EXAMINATION: At the time of discharge, blood pressure of 116/66, heart rate of 72 and regular, respiratory rate 16, oxygen saturation 97% on room air, temperature 97.4. General: The patient is a very pleasant 33-year- old female who is in no acute distress. Alert, awake, and oriented x3. HEENT: Head: Atraumatic, normocephalic. Eyes: Pupils are equal, reactive to light and accommodation. Oropharynx is clear. Mucosa moist. Neck: Supple. No JVD. No bruits bilaterally. Cardiovascular: Regular rate and rhythm. No murmur. Respiratory: Clear to auscultation bilaterally. Abdomen: Soft, nontender. Bowel sounds are present in all 4 quadrants. Extremities: There is no edema. Pulses are +2 bilaterally. There is no clubbing or cyanosis. Neuro Evaluation: Cranial nerves II through XII are grossly intact. Motor strength is 5/5 bilaterally. Please note that this is a short summary of the patient's hospitalization. Please refer to further medical records for details. [id number]/[facility] #: [id number] [facility]
== END 2018-10-13 15:39 | disposition home or self-care (01) ==
LOC: ED 19:37 → MEDTELE 21:41
PROVIDERS: ADMIT Internal Medicine; ATTEND Internal Medicine
DX: R47.01 Aphasia (principal); G43.909 Migraine, unspecified, not intractable, without status migrainosus; R47.81 Slurred speech; R51 Headache; Z87.891 Personal history of nicotine dependence
CPT/HCPCS: 36415; 70450; 70496; 70498; 70553; 71045; 80053; 80307; 81003; 81015; 83735; 84484; 84702; 85025; 85610; 85730; 87086; 93005; 93306; 95819; 96360; 99285; A9270-GY; A9579; G0378; Q9967

== ENCOUNTER 2019-03-17 18:07 | Emergency (ER) | payer OTHER, MEDICAID ==
[2019-03-17] MEDS ORDERED: NS 0.9% 1000 ML** 1,000 ML IV.FLUID IV ONE (18:19)
[2019-03-17] MEDS ORDERED: Acetaminophen TAB* 325 MG PO ONE (18:20)
[2019-03-17] MEDS ORDERED: Ondansetron INJ* 2 MG/ML VIAL IV ONE ×2 (18:23→20:56)
--- NOTE | 2019-03-17 18:27 | ED ---
GI/ HPI - HPI Summary HPI Summary: 33-year-old female presents with flank pain for the past 2 weeks. States that states she developed fever today. She also has dysuria. She denies any abnormal vaginal discharge. She admits to epigastric pain. Denies any cough. No chest pressure but admits to shortness of breath. Denies any sore throat. She took Tylenol yesterday for her fever. She states she just feels very dehydrated. She denies any headache. No neck stiffness. No saddle anesthesia or loss of bowel or bladder. Has history of focal seizures. States she has history of pyelo. She states she doesn't feel when she gets UTI until it goes to her kidney. She denies any injury. - History of Current Complaint Chief Complaint: EDUrogenitalProblems Time Seen by Provider: 03/17/19 18:14 Stated Complaint: MIGHT HAVE A UTI PER PT Pain Intensity: 6 - Additional Pertinent History Primary Care Physician: [id number] - Allergy/Home Medications Allergies/Adverse Reactions: Allergies Allergy/AdvReac Type Severity Reaction Status Date / Time Penicillins Allergy Hives Verified 03/17/19 18:13 latex AdvReac Mild Rash Verified 03/17/19 18:13 ibuprofen [From Motrin] AdvReac Abdominal Verified 03/17/19 18:13 Pain naproxen [From Aleve] AdvReac Bleeding Verified 03/17/19 18:13 Home Medications: Home Medications OXcarbazepine TAB(*) [Trileptal 300 mg TAB(*)] 600 mg PO DAILY 03/17/19 [ History Confirmed 03/17/19] Topiramate 50 mg PO DAILY 03/17/19 [History Confirmed 03/17/19] PMH/Surg Hx/FS Hx/Imm Hx Endocrine/Hematology History: Denies: Hx Anticoagulant Therapy, Hx Diabetes Cardiovascular History: Reports: Other Cardiovascular Problems/Disorders - tachyarrhythmia Denies: Hx Hypertension, Hx Pacemaker/ICD Respiratory History: Reports: Hx Asthma GI History: Reports: Hx Gastroesophageal Reflux Disease History: Denies: Hx Renal Disease Sensory History: Reports: Hx Contacts or Glasses Denies: Hx Hearing Aid Opthamlomology History: Reports: Hx Contacts or Glasses Psychiatric History: Reports: Hx Anxiety, Hx Depression Denies: Hx Panic Disorder Infectious Disease History: No Infectious Disease History: Denies: Traveled Outside the [place] in Last 30 Days - Family History Known Family History: Positive: Hypertension, Other - diverticulitis, crohns Negative: Cardiac Disease, Diabetes - Social History Alcohol Use: None Substance Use Type: Reports: None Hx Tobacco Use: Yes Smoking Status (MU): Never Smoked Tobacco Type: Cigarettes Amount Used/How Often: 1.5 PPD Have You Smoked in the Last Year: Yes Review of Systems Positive: Fever, Chills Negative: Chest Pain Positive: Shortness Of Breath. Negative: Cough Positive: Abdominal Pain, Nausea Positive: dysuria, flank pain All Other Systems Reviewed And Are Negative: Yes Physical Exam Triage Information Reviewed: Yes Vital Signs On Initial Exam: Initial Vitals Temp Pulse Resp BP Pulse Ox 101.8 F 133 18 140/88 98 03/17/19 18:08 03/17/19 18:08 03/17/19 18:08 03/17/19 18:08 03/17/19 18:08 Vital Signs Reviewed: Yes Appearance: Positive: Well-Appearing Skin: Positive: Warm, Dry Head/Face: Positive: Normal Head/Face Inspection Eyes: Positive: Normal, Conjunctiva Clear ENT: Positive: Pharynx normal Neck: Positive: Supple, Nontender, No Lymphadenopathy Respiratory/Lung Sounds: Positive: Clear to Auscultation, Breath Sounds Present Cardiovascular: Positive: Normal, RRR Abdomen Description: Positive: Soft, CVA Tenderness (R), CVA Tenderness (L), Other: - tenderness epigastric Bowel Sounds: Positive: Present Musculoskeletal: Positive: Normal Neurological: Positive: Normal Psychiatric: Positive: Normal Diagnostics - Vital Signs Vital Signs Temp Pulse Resp BP Pulse Ox 03/17/19 18:08 101.8 F 133 18 140/88 98 - Laboratory Result Diagrams: 03/17/19 18:48 03/17/19 18:48 Lab Statement: Any lab studies that have been ordered have been reviewed, and results considered in the medical decision making process. - Radiology chest Radiology Interpretation Completed By: ED Physician Summary of Radiographic Findings: possible pnuemonia right lower lobe - CT cta CT Interpretation Completed By: Radiologist Summary of CT Findings: IMPRESSION: No pulmonary emboli. No additional findings to correlate with patient's. symptomatology. Re-Evaluation - Re-Evaluation First Eval Re-Evaluation Time: 20:32 Change: Improved Comment: feeling better. discussed does not have uti Second Eval Re-Evaluation Time: 21:17 Change: Worse Comment: after starting azithromycin feels warm and pain in stomach GIGU Course/Dx - Course Course Of Treatment: 33-year-old female presents with flank pain for the past 2 weeks. States that states she developed fever today. She also has dysuria. She denies any abnormal vaginal discharge. She admits to epigastric pain. Denies any cough. No chest pressure or shortness of breath. Denies any sore throat. She took Tylenol yesterday for her fever. She states she just feels very dehydrated. She denies any headache. No neck stiffness. No saddle anesthesia or loss of bowel or bladder. Has history of focal seizures. States she has history of pyelo. She states she doesn't feel when she gets UTI until it goes to her kidney. She denies any injury. On exam tenderness bilateral flanks. Patient is febrile here. wbc 10.9. crp elevated. lactic normal. urine no infection. renal u/s normal. chest xray read by me as possible pneumonia. gave dose of azithromycin. d-dimer elevated. CTA shows no acute findings. will discharge on azithromycin for possible pneumonia. told continue tyenlol. told follow up with primary. patient understand and agrees with plan. - Diagnoses Differential Diagnoses - Female: Pyelonephritis, Urinary Tract Infection, Ureteral Calculi Provider Diagnoses: Fever, Pneumonia Discharge - Sign-Out/Discharge Documenting (check all that apply): Patient Departure Patient Received Moderate/Deep Sedation with Procedure: No - Discharge Plan Condition: Good Disposition: HOME Prescriptions: Azithromycin TAB* [Zithromax TAB (Z-URMILA) 250 mg #6 tabs] 250 mg PO DAILY #4 tab Patient Education Materials: Pneumonia (ED) Referrals: George Osman PA [Primary Care Provider] - Additional Instructions: Take antibiotic once daily starting tomorrow for 4 days Take Tylenol for pain every 6 hours Follow up with primary within 5 days Return to ED if develop any new or worsening symptoms - Billing Disposition and Condition Condition: GOOD Disposition: Home
[2019-03-17] MEDS ORDERED: Morphine 4 MG/ML VIAL (1 ml) 4 MG/ML VIAL IV ONE (18:36)
[2019-03-17 18:54] LABS: ABS Eosinophils 0.2 10^3/ul (0-0.6); ABS Lymphocytes 0.8 10^3/ul (1.0-4.8); ABS Monocytes 0.6 10^3/ul (0-0.8); ABS Neutrophils 9.2 10^3/ul (1.5-7.7); Eosinophil % 2.1 %; Hematocrit 42 % (35-47); Hemoglobin 14.7 g/dL (12.0-16.0); Lymphocyte % 7.4 %; Mean Corpuscular HGB Conc 35 g/dL (31-36); Mean Corpuscular Hemoglobin 31 pg (27-31); Mean Corpuscular Volume 87 fL (80-97); Mean Platelet Volume 7.5 fL (7.4-10.4); Platelet Count 252 10^3/uL (150-450); Red Blood Count 4.84 10^6 /uL (3.70-4.87); Red Cell Distribution Width 13 % (10-15); White Blood Count 10.9 10^3/uL (3.5-10.8)
[2019-03-17 19:09] LABS: Activated Partial Thrombo Time 33.6 seconds (26.0-38.0); INR 0.9 (0.82-1.09)
[2019-03-17 19:12] LABS: ALT 14 U/L (7-52); AST 10 U/L (13-39); Albumin/Globulin Ratio 1.3 (1-3); Alkaline Phosphatase 49 U/L (34-104); Anion Gap 9 mmol/L (2-11); BUN/Creatinine Ratio 13.8 (8-20); Blood Urea Nitrogen 11 mg/dL (6-24); CO2 Carbon Dioxide 19 mmol/L (22-32); Calcium 8.7 mg/dL (8.6-10.3); Chloride 107 mmol/L (101-111); EGFR African American 101.2 (>60); EGFR Non-African American 83.7 (>60); Glucose 115 mg/dL (70-100); Potassium 3.5 mmol/L (3.5-5.0); Sodium 135 mmol/L (135-145)
[2019-03-17 19:18] LABS: HCG Pregnancy 1.21 mIU/mL
[2019-03-17 20:23] LABS: Urine Appearance Clear; Urine Bilirubin Negative (Negative); Urine Blood Negative (Negative); Urine Color Straw; Urine Glucose Negative (Negative); Urine Ketones Negative (Negative); Urine Nitrite Negative (Negative); Urine Protein Negative (Negative); Urine Specific Gravity 1.005 (1.010-1.030); Urine Urobilinogen Negative (Negative)
[2019-03-17] MEDS ORDERED: Azithromycin 500 mg/250 ml NS 500 MG/250 ML BAG IVPB ONE (20:31)
[2019-03-17] MEDS ORDERED: Azithromycin TAB* 250 MG PO ONE (21:16)
[2019-03-17] MEDS ORDERED: Iohexol 350* (CONTRAST) 500 ML MDV IV ONE (22:04)
[2019-03-17 22:36] VITALS: BP 105/64
== END 2019-03-17 22:35 | disposition home or self-care (01) ==
LOC: ED 18:07
DX: R50.9 Fever, unspecified (principal); J18.9 Pneumonia, unspecified organism; R10.84 Generalized abdominal pain; Z88.0 Allergy status to penicillin; R30.0 Dysuria; K21.9 Gastro-esophageal reflux disease without esophagitis; R11.0 Nausea; Z86.79 Personal history of other diseases of the circulatory system; Z79.899 Other long term (current) drug therapy
CPT/HCPCS: 36415; 71045; 71275; 76775; 80053; 81003; 83605; 83690; 84702; 85025; 85379; 85610; 85730; 86140; 87040; 96374; 96375; 96376; 99283; A9270-GY; J0456; J2405; Q9967

== ENCOUNTER 2021-08-11 16:05 | Inpatient (IN) ==
[2021-08-11] MEDS ORDERED: Lactated Ringers 1000 ml BAG 1,000 ML IV ONE ×2 (18:13→22:55)
[2021-08-11] MEDS ORDERED: Oxytocin in LR 20 UNITS/1,000 ML BAG IVPB SCH (18:30)
[2021-08-11] MEDS ORDERED: Lactated Ringers 1000 ml BAG 1,000 ML IV SCH ×2 (19:00→23:00)
[2021-08-11 19:03] LABS: Rapid COVID-19 Molecular Detected (Undetected)
[2021-08-11 19:11] LABS: Hematocrit 32 % (35-47); Hemoglobin 11.5 g/dL (12.0-16.0); Mean Corpuscular HGB Conc 36 g/dL (31-36); Mean Corpuscular Hemoglobin 31 pg (27-31); Mean Corpuscular Volume 87 fL (80-97); Mean Platelet Volume 8.6 fL (7.4-10.4); Platelet Count 313 10^3/uL (150-450); Red Blood Count 3.73 10^6 /uL (3.70-4.87); Red Cell Distribution Width 13 % (10-15); White Blood Count 7.4 10^3/uL (3.5-10.8)
[2021-08-11 19:21] LABS: ABS Eosinophils 0.2 10^3/ul (0-0.6); ABS Monocytes 0.5 10^3/ul (0-0.8); ABS Neutrophils 4.8 10^3/ul (1.5-7.7); Eosinophil % 2.1 %; Lymphocyte % 26.4 %
[2021-08-11 19:26] LABS: Urine Benzodiazepine Screen None Detected (None Detect); Urine Cannabinoids Screen None Detected (None Detect); Urine Opiates Screen None Detected (None Detect)
[2021-08-11] MEDS ORDERED: OBEPIDURAL 250 ML EPIDURAL ONE (21:53)
[2021-08-11] MEDS ORDERED: EPHEDrine (Pressors) 50 MG/ML VIAL IV PUSH PRN ×2 (22:55)
[2021-08-11] MEDS ORDERED: Sodium Citrate/Citric Acid LIQ 15 ML UDC PO PRN (22:55)
[2021-08-11] MEDS ORDERED: Phenylephrine 40 mcg/mL 10mL (400mcg) SYRINGE IV PUSH PRN ×2 (22:55)
[2021-08-11] MEDS ORDERED: OBEPIDURAL 250 ML EPIDURAL SCH (23:00)
[2021-08-12] MEDS ORDERED: Oxytocin in LR 20 UNITS/1,000 ML BAG IVPB SCH (00:30)
[2021-08-12] MEDS ORDERED: Witch Hazel PAD JAR TOPICAL PRN (01:05)
[2021-08-12] MEDS ORDERED: Dibucaine 1% OINT 28.35 GM TUBE PR PRN (01:05)
[2021-08-12] MEDS ORDERED: Lactated Ringers 1000 ml BAG 1,000 ML IV SCH (02:00)
[2021-08-13 01:31] VITALS: BP 118/73
[2021-08-13 06:54] LABS: ABS Eosinophils 0.1 10^3/ul (0-0.6); ABS Lymphocytes 0.9 10^3/ul (1.0-4.8); ABS Monocytes 0.5 10^3/ul (0-0.8); ABS Neutrophils 4.6 10^3/ul (1.5-7.7); Eosinophil % 2.1 %; Hematocrit 29 % (35-47); Lymphocyte % 14.6 %; Mean Corpuscular HGB Conc 34 g/dL (31-36); Mean Corpuscular Hemoglobin 30 pg (27-31); Mean Corpuscular Volume 88 fL (80-97); Mean Platelet Volume 8.5 fL (7.4-10.4); Platelet Count 250 10^3/uL (150-450); Red Blood Count 3.31 10^6 /uL (3.70-4.87); Red Cell Distribution Width 13 % (10-15); White Blood Count 6.2 10^3/uL (3.5-10.8)
== END 2021-08-13 12:02 | disposition home or self-care (01) | DRG 560 ==
LOC: MCHOBOUT 16:05 → MCHOB 17:35
PROVIDERS: ADMIT Midwife; ATTEND Midwife

== ENCOUNTER 2024-05-08 08:36 | Inpatient (IN) ==
[2024-05-08] MEDS ORDERED: Lactated Ringers 1000 ml BAG 1,000 ML IV ONE ×2 (09:17→14:15)
[2024-05-08] MEDS ORDERED: Lidocaine 1% VIAL 10 MG/ML 30 ML VIAL INJ PRN (09:17)
[2024-05-08] MEDS: Lactated Ringers 1000 ml BAG 1,000 ML IV SCH (09:58)
[2024-05-08] MEDS: Oxytocin in LR 20,000 MILLI.UNIT/1,000 ML BAG IV SCH (10:02)
[2024-05-08 10:13] LABS: Hematocrit 30.8 % (35-45); Hemoglobin 10.7 g/dL (11.5-14.3); Mean Corpuscular Hemoglobin 30.3 pg (27-33); Mean Corpuscular Hgb Conc 34.8 g/dL (31-36); Mean Corpuscular Volume 86.9 fL (80-97); Red Blood Count 3.54 10^6/uL (3.63-4.92); Red Cell Distribution Width 13.7 % (12-17); White Blood Count 9.1 10^3/uL (3.8-11.8)
[2024-05-08 10:37] LABS: Urine Benzodiazepine Screen None Detected (None Detect); Urine Cannabinoids Screen None Detected (None Detect); Urine Opiates Screen None Detected (None Detect)
[2024-05-08 10:38] LABS: ABS Eosinophils 0.2 10^3/uL (0.0-0.5); ABS Lymphocytes 1.7 10^3/uL (1.0-4.8); ABS Monocytes 0.6 10^3/uL (0.0-0.9); ABS Neutrophils 6.7 10^3/uL (1.5-7.6); Eosinophil % 1.7 %; Lymphocyte % 18.4 %; Mean Platelet Volume 8.9 fL (7.5-11.2); Platelet Count 286 10^3/uL (150-450)
[2024-05-08] MEDS ORDERED: Lidocaine 1.5% EPI 1:200,000 30 ML SDV ONE (12:58)
[2024-05-08] MEDS: OBEPIDURAL (200 ML) 200 ML EPIDURAL ONE (13:45)
[2024-05-08] MEDS ORDERED: Phenylephrine 40 mcg/mL 10mL (400mcg) SYRINGE IV PUSH PRN ×2 (14:15)
[2024-05-08] MEDS ORDERED: Sodium Citrate/Citric Acid LIQ 15 ML UDC PO PRN (14:15)
[2024-05-08 15:38] LABS: Urine Appearance Clear; Urine Bilirubin Negative (Negative); Urine Blood Negative (Negative); Urine Color Light-Yellow; Urine Glucose Negative (Negative); Urine Ketones Negative (Negative); Urine Nitrite Negative (Negative); Urine Protein Negative (Negative); Urine Specific Gravity 1.011 (1.002-1.030); Urine Urobilinogen Negative (Negative)
[2024-05-08] MEDS: Methylergonovine 0.2 mg AMPULE 1 ml AMP IM ONE (17:06)
[2024-05-08] MEDS ORDERED: Oxytocin in LR 20,000 MILLI.UNIT/1,000 ML BAG IV SCH (17:35)
[2024-05-08] MEDS ORDERED: Lactated Ringers 1000 ml BAG 1,000 ML IV SCH (18:00)
[2024-05-08] MEDS: Dibucaine 1% OINT 28.35 GM TUBE PR PRN (19:52)
[2024-05-08] MEDS: Witch Hazel PAD JAR TOPICAL PRN (19:52)
[2024-05-08] MEDS ORDERED: Levalbuterol HFA INHALER MDI INH PRN (22:11)
[2024-05-09 07:13] LABS: ABS Eosinophils 0.2 10^3/uL (0.0-0.5); ABS Lymphocytes 1.8 10^3/uL (1.0-4.8); ABS Monocytes 0.7 10^3/uL (0.0-0.9); ABS Neutrophils 6.9 10^3/uL (1.5-7.6); ABS Nucleated RBC 0.02 10^3/ul; Eosinophil % 1.8 %; Hematocrit 33.9 % (35-45); Hemoglobin 11.1 g/dL (11.5-14.3); Mean Corpuscular Hemoglobin 30.5 pg (27-33); Mean Corpuscular Hgb Conc 32.8 g/dL (31-36); Mean Corpuscular Volume 92.7 fL (80-97); Nucleated Red Blood Cells % 0.2 %/100WBC (0.0-0.8); Platelet Count 155 10^3/uL (150-450); Red Blood Count 3.65 10^6/uL (3.63-4.92); Red Cell Distribution Width 13.8 % (12-17); White Blood Count 9.6 10^3/uL (3.8-11.8)
[2024-05-09] MEDS: Lactated Ringers 1000 ml BAG 1,000 ML IV SCH (12:28)
[2024-05-09] MEDS: OBEPIDURAL (200 ML) 200 ML EPIDURAL SCH (12:28)
[2024-05-09] MEDS: Methylergonovine 0.2 mg AMPULE 1 ml AMP ONE (12:29)
[2024-05-10 09:52] VITALS: BP 128/73
== END 2024-05-10 11:59 | disposition home or self-care (01) | DRG 560 ==
LOC: MCHOBOUT 08:36 → MCHOB 08:51
PROVIDERS: ADMIT Midwife; ATTEND Midwife